=== PATIENT | male | born 1960 | race Asian ===

== ENCOUNTER 2020-03-20 09:31 | Emergency (ER) | payer OTHER ==
[~2020-03-20] VITALS: Ht 170.2 cm; Wt 95.3 kg
[2020-03-20] MEDS ORDERED: ALLO100T22 PO (09:56)
[2020-03-20] MEDS ORDERED: COLCRYS 0.6MG0.6 MG PO (09:57)
[2020-03-20 10:37] LABS: PLATELET COUNT 204 K/uL (142-355)
[2020-03-20 10:43] LABS: POTASSIUM 3.6 mmol/L (3.6-5.2)
[2020-03-20 11:12] LABS: PARTIAL THROMBOPLASTIN TIME 23.4 SECONDS (24.5-33.6)
[2020-03-20 11:20] VITALS: BP 158/78; TEMP 98
== END 2020-03-20 11:20 | disposition home or self-care (01) ==
LOC: ED 09:31
PROVIDERS: Hospitalist
DX: M10.9 Gout, unspecified (principal); M17.11 Unilateral primary osteoarthritis, right knee
CPT/HCPCS: 80048; 85027; 85379; 85610; 85730; 96372; 99283; J1885

== ENCOUNTER 2020-11-05 11:41 | Emergency (ER) | payer OTHER ==
[~2020-11-05] VITALS: Ht 170.2 cm; Wt 95.3 kg
[2020-11-05 11:41] VITALS: TEMP 97.9
[~2020-11-05 11:41] MED LIST: ALLO100T22 PO; COLCRYS 0.6MG0.6 MG PO
[2020-11-05 11:59] LABS: PLATELET COUNT 216 K/uL (142-355)
[2020-11-05 12:03] LABS: POTASSIUM 3.5 mmol/L (3.6-5.2); SODIUM 142 mmol/L (136-145)
[2020-11-05 12:08] LABS: PARTIAL THROMBOPLASTIN TIME 23.4 SECONDS (24.5-33.6)
[2020-11-05 13:01] VITALS: BP 156/80
== END 2020-11-05 13:00 | disposition home or self-care (01) ==
LOC: ED 11:41
PROVIDERS: Hospitalist
DX: R07.89 Other chest pain (principal); R06.4 Hyperventilation; F15.10 Other stimulant abuse, uncomplicated
CPT/HCPCS: 36415; 80053; 80307; 80320; 81000; 82550; 83880; 84484; 85027; 85379; 85610; 85730; 93005; 96374; 96375; 99284; J2060; J2405

== ENCOUNTER 2021-07-06 11:10 | Emergency (ER) | payer OTHER ==
[~2021-07-06] VITALS: Ht 170.2 cm; Wt 101.2 kg
[2021-07-06 11:52] LABS: PLATELET COUNT 228 K/uL (142-355)
[2021-07-06 11:59] LABS: POTASSIUM 3.8 mmol/L (3.6-5.2); SODIUM 140 mmol/L (136-145)
[2021-07-06 12:18] LABS: PARTIAL THROMBOPLASTIN TIME 24.3 SECONDS (24.5-33.6)
[2021-07-06 13:33] VITALS: BP 135/78
== END 2021-07-06 13:33 | disposition home or self-care (01) ==
LOC: ED 11:10
PROVIDERS: Emergency Medicine
DX: R07.89 Other chest pain (principal); F41.8 Other specified anxiety disorders; F14.10 Cocaine abuse, uncomplicated; I10 Essential (primary) hypertension
CPT/HCPCS: 80053; 80307; 80320; 83880; 84484; 85027; 85379; 85610; 85730; 93005; 96374; 99283; 99284; J2405; J3490

== ENCOUNTER 2023-02-10 10:25 | Outpatient (CLI) | payer OTHER | END 2023-02-10 17:00 | disposition home or self-care (01) | LOC: RAD 10:25 | PROVIDERS: ATTEND Orthopaedic Surgery | DX: M25.561 Pain in right knee (principal) ==

== ENCOUNTER 2023-02-23 09:28 | Outpatient (CLI) | payer OTHER | END 2023-02-23 18:57 | disposition home or self-care (01) | LOC: MRI 09:28 | PROVIDERS: ATTEND Orthopaedic Surgery | DX: M54.16 Radiculopathy, lumbar region (principal) ==